=== PATIENT | male | born 1970 | race African-American/Black ===

== ENCOUNTER 2017-12-10 00:39 | Observation (INO) ==
[2017-12-10] MEDS ORDERED: NITROGLYCERIN 2% OINT 1 INCH/GM PACK TOP STA (00:48)
[2017-12-10] MEDS ORDERED: LORazepam 1 MG TABLET PO STA (00:48)
[2017-12-10] MEDS ORDERED: ONDANSETRON 4 MG/2 ML VIAL IV STA (00:48)
[2017-12-10] MEDS ORDERED: MORPHINE 2 MG/1 ML SYRINGE IV STA (00:48)
[2017-12-10] MEDS ORDERED: SODIUM CHLORIDE 0.9% 500 ML IV STA (00:48)
[2017-12-10] MEDS ORDERED: ASPIRIN 325 MG TABLET PO STA (00:48)
[2017-12-10 00:57] LABS: Basophils % 0.5 % (0.0-0.8); Eosinophils # 0.1 10*3/uL (0.0-0.87); Eosinophils % 1.2 % (0.00-10.9); Hematocrit 38.4 VOL% (42.0-52.0); Immature Granulocytes % 0.1 %; Immature Granulocytes Absolute 0.01 #; Lymphocytes % 39.7 % (21.2-54.2); Mean Corpuscular HGB Conc 33.9 GM/DL (32-36); Mean Corpuscular Hemoglobin 30 PG (27-34); Mean Corpuscular Volume 89.5 FL (87-102); Mean Platelet Volume 9.2 FL (9.6-12.0); Monocytes # 0.5 10*3/uL (0.11-0.8); Monocytes % 6.5 % (1.7-12.7); Neutrophils # 3.9 10*3/uL (1.4-7.4); Platelet Count 195 T/CUMM (130-400); Red Blood Count 4.29 MC/CUMM (3.8-5.5); Red Cell Distribution Width 14.5 % (9.3-17.3); White Blood Count 7.6 T/CUMM (4-12)
[2017-12-10 01:08] LABS: INR 0.9
[2017-12-10 01:19] LABS: Alanine Aminotransferase 76 U/L (16-61); Albumin 3.4 G/DL (3.4-5.0); Alkaline Phosphatase 70 U/L (45-117); Aspartate Amino Transferase 64 U/L (0-37); Bilirubin,Total < 0.39 MG/DL (0.2-1.0); Blood Urea Nitrogen 12 MG/DL (7-18); Calcium 8.7 MG/DL (8.5-10.1); Glucose 109 MG/DL (74-106); Osmolality,Calculated 277.5 MOS/KG (273-304); Potassium 4.1 MMOL/L (3.5-5.1); Sodium 139 MMOL/L (136-145); Total Protein 7.5 G/DL (6.4-8.3)
[2017-12-10] MEDS ORDERED: ENOXAPARIN 100 MG/ML SYRINGE SUBCUT STA (01:34)
[2017-12-10] MEDS ORDERED: MORPHINE 2 MG/1 ML SYRINGE IV PRN (01:49)
[2017-12-10] MEDS ORDERED: ONDANSETRON 4 MG/2 ML VIAL IV PRN (01:49)
[2017-12-10] MEDS ORDERED: NITROGLYCERIN 2% OINT 1 INCH/GM PACK TOP SCH (02:00)
[2017-12-10] MEDS ORDERED: ENOXAPARIN 40 MG/0.4 ML SYRINGE SUBCUT SCH (02:00)
[2017-12-10] MEDS ORDERED: chlordiazePOXIDE 25 MG CAPSULE PO PRN (02:18)
[2017-12-10] MEDS ORDERED: SODIUM CHLORIDE 0.9% 1,000 ML IV SCH (02:30)
[2017-12-10 02:32] LABS: Risk Ratio 3.11; VLDL CHOLESTEROL 39.8 MG/DL
[2017-12-10 07:24] LABS: Hepatitis A Ab IgM Quant 0.32 Index; Hepatitis A Ab IgM Result Negative (Negative); Hepatitis B Core IgM Quant 0.37 Index; Hepatitis B Core IgM Result Negative (Negative); Hepatitis B Surface Ag Quant > 1000.00 Index; Hepatitis B Surface Ag Result Positive (Negative); Hepatitis C Virus Ab Quant 0.09 Index; Hepatitis C Virus Ab Result Negative (Negative)
[2017-12-10 07:34] LABS: Apearance,Urine CLEAR (Clear); Bilirubin,Urine Negative (Negative); Blood, Urine Moderate mg/dL (Negative); Glucose,Urine (UA) Negative (Negative); Ketones,Urine Negative (Negative); Mucus,Urine Few /LPF (Occasional); Nitrite,Urine Negative (Negative); Protein,Urine Negative; RBC,Urine 1 /HPF (0-4); Urine Color Yellow (Yellow); Urine Specific Gravity 1.016 (1.001-1.035); WBC,Urine 1 /HPF (0-6)
[2017-12-10 08:06] VITALS: BP 138/86
[2017-12-10 08:09] LABS: Barbiturates Screen,Urine Negative (Negative); Benzodiazepines Screen,Urine Negative (Negative); Cannabinoid Screen,Urine Positive (Negative); Opiate Screen,Urine Positive (Negative); Phencyclidine Screen,Urine Negative (Negative)
[2017-12-10] MEDS ORDERED: ASPIRIN EC 325 MG TABLET PO SCH (09:00)
[2017-12-10] MEDS ORDERED: INFLUENZA VIRUS VACCINE 0.5 ML SYRINGE IM ONE (09:00)
[2017-12-10] MEDS ORDERED: FOLIC ACID 1 MG TABLET PO SCH (09:00)
[2017-12-10] MEDS ORDERED: THIAMINE 100 MG TABLET PO SCH (09:00)
[2017-12-10] MEDS ORDERED: MULTIVITAMIN (CENTRUM) TABLET PO SCH (09:00)
[2017-12-10 09:43] LABS: Alanine Aminotransferase 63 U/L (16-61); Albumin 2.9 G/DL (3.4-5.0); Alkaline Phosphatase 63 U/L (45-117); Aspartate Amino Transferase 52 U/L (0-37); Bilirubin,Total < 0.39 MG/DL (0.2-1.0); Blood Urea Nitrogen 15 MG/DL (7-18); Calcium 7.9 MG/DL (8.5-10.1); Glucose 96 MG/DL (74-106); Potassium 4.1 MMOL/L (3.5-5.1); Sodium 143 MMOL/L (136-145); Total Protein 6.3 G/DL (6.4-8.3)
[2017-12-10 12:07] LABS: Hepatitis B Core Ab Result Positive (Negative); Hepatitis B Surface Ab Result Negative
== END 2017-12-10 12:38 | disposition home or self-care (01) ==
LOC: N.EDINP 00:39 → N.ED 00:39 → N.CC 03:07
PROVIDERS: ADMIT Internal Medicine; ATTEND Internal Medicine